=== PATIENT | female | born 1990 | race Hispanic/Latino ===

== ENCOUNTER 2022-11-23 20:49 | Emergency (ER) | payer SELFPAY ==
--- OUTSIDE RECORDS SUMMARY | 2022-11-23 21:26 | XMS REPORT | Continuity of Care Document ---
:1990 Author Organization [facility] t Address [address] [place] [address] Care Team Providers Name Role Phone PORTIA GONZALEZ Primary Care Physician Unavailable PORTIA GONZALEZ Attending Clinician Unavailable ADRIANE JOLLY Attending Clinician Unavailable ISAC BARTON Attending Clinician Unavailable Isac Barton MD Attending Clinician Aby Portia KEANE Attending Clinician Payers Payer Name Policy Type Policy Number Effective Date Expiration Date Jen banks [id number] 2021 00:00:00 MEDICAID [place] PENDING 2022 PENDING 00:00:00 Problems Condition Condition Condition Status Onset Resolution Last Treating Co mments Source Name Details Category Date Date Treatment Clinician Date Other Other Disease Active 2021-03 Univers general general 0-14 [place] of [place] and advice 00 Ma dical for for Branch contracept contracept jose carlos jose carlos management management Over Over Disease Active 2021-03 Univers weight weight 0-14 ity of 00:00: [place] 00 Medical Branch Elevated Elevated Disease Active 2021-03 Unive rs blood blood 0-14 ity of pressure pressure 00:00: [place] reading reading 00 Medical without without Branch diagnosis diagnosis of of hypertensi hypertensi on on Allergies, Adverse Reactions, Alerts Allergy Allergy Status Severity Reaction(s) Onset Inactive Treating Comm ents Source Name Type Date Date Clinician NO KNOWN Drug Active Univers ALLERGIE Class ity of S [facility] Branch Social History Social Habit Start Date Stop Date Quantity Comments Source Exposure to 2022-01-13 2022-01-23 Not sure [facility]-CoV-2 00:00:00 16:08:00 [facility] (event) Branch Alcohol intake 2022-01-23 2022-01-23 Ex-drinker [facility] 00:00:00 00:00:00 (finding) [facility] Tobacco use and 2022-01-03 2022-01-03 Smokeless tobacco Un iversity of exposure 00:00:00 00:00:00 non-user [facility] Sex Assigned At [birth year] Universit y of 00:00:00 00:00:00 [facility] Smoking Status Start Date Stop Date Source Never smoked tobacco [facility] Medications Ordered Filled Start Stop Current Ordering Indication Dosage Frequency Signature Comments Components Source Medication Medication Date Date Medication? Clinician (SIG) Name Name levonorgest 2021-03 Yes [id number] 1{tbl} Take 1 Univers rel-ethinyl 1-03 tablet by ity of estradiol 00:00: mouth [place] (SRONYX) 00 daily. Medical 0.1-20 Branch mg-mcg per tablet levonorgest 2021-03 Yes [id number] 1{tbl} Take 1 Univers rel-ethinyl 1-03 tablet by ity of estradiol 00:00: mouth [place] (SRONYX) 00 daily. Medical 0.1-20 Branch mg-mcg per tablet levonorgest 2021-03 Yes [id number] 1{tbl} Take 1 Univers rel-ethinyl 1-03 tablet by ity of estradiol 00:00: mouth [place] (SRONYX) 00 daily. Medical 0.1-20 Branch mg-mcg per tablet levonorgest 2021-03 Yes [id number] 1{tbl} Take 1 Univers rel-ethinyl 1-03 tablet by ity of estradiol 00:00: mouth [place] (SRONYX) 00 daily. Medical 0.1-20 Branch mg-mcg per tablet levonorgest 2021-03 Yes [id number] 1{tbl} Take 1 Univers rel-ethinyl 1-03 tablet by ity of estradiol 00:00: mouth [place] (SRONYX) 00 daily. Medical 0.1-20 Branch mg-mcg per tablet No known 2021-03 No No known Unive rs medications 0-14 medication it y of 10:18: s [place] [address] Medical Branch No known 2021-03 No No known Unive rs medications 0-14 medication it y of 10:18: s [address] Vital Signs Vital Name Observation Time Observation Value Comments Source Systolic blood 2022-09-06 18:05:00 136 mm[Hg] Univer sity of pressure [facility] Diastolic blood 2022-09-06 18:05:00 83 mm[Hg] Unive rsity of pressure [facility] Heart rate 2022-09-06 18:05:00 99 /min Universi ty of [facility] Body temperature 2022-09-06 18:05:00 37.72 Jolene Univ ersity of [facility] Respiratory rate 2022-09-06 18:05:00 18 /min Univ ersity of [facility] Body weight 2022-09-06 18:05:00 78.926 kg Universi ty of [facility] BMI 2022-09-06 18:05:00 29.87 kg/m2 Universi ty of [facility] Oxygen saturation in 2022-09-06 18:05:00 99 /min [facility] Arterial blood by [facility] Pulse oximetry Branch Systolic blood 2022-01-23 21:09:00 139 mm[Hg] Univer sity of pressure [facility] Diastolic blood 2022-01-23 21:09:00 83 mm[Hg] Unive rsity of pressure [facility] Heart rate 2022-01-23 21:09:00 73 /min Universi ty of [facility] Body temperature 2022-01-23 21:09:00 36.33 Jolene Univ ersity of [facility] Respiratory rate 2022-01-23 21:09:00 18 /min Univ ersity of [facility] Body height 2022-01-23 21:09:00 162.6 cm [facility] Body weight 2022-01-23 21:09:00 78.983 kg [facility] BMI 2022-01-23 21:09:00 29.89 kg/m2 [facility] Systolic blood 2022-01-03 16:01:00 130 mm[Hg] Univer sity of pressure [facility] Branch Diastolic blood 2022-01-03 16:01:00 86 mm[Hg] Unive rsity of pressure [facility] Heart rate 2022-01-03 15:17:00 77 /min [facility] Body temperature 2022-01-03 15:17:00 36.56 Jolene [facility] 2022-01-03 15:17:00 18 /min [facility] Body height 2022-01-03 15:17:00 165 cm [facility] Body weight 2022-01-03 15:17:00 78.109 kg [facility] BMI 2022-01-03 15:17:00 28.69 kg/m2 [facility] Procedures Procedure Date / Time Performed Performing Clinician [facility] e ASSIGNMENT OF BENEFITS 2022-09-06 18:36:59 Doctor Unassigned, No [facility] POCT TEST 2022-01-23 21:27:00 Portia Gonzalez [facility] POCT TEST 2022-01-03 15:20:00 Portia Gonzalez [facility] Encounters Start End Encounter Admission Attending Care Care Encounter Source Date/Time Date/Time Type Type Clinicians Facility Department ID 2022-10-24 2022-10-24 Outpatient R SHANAE [facility] [id number] Univers 09:15:00 09:15:00 ADRIANE freedman [facility] 2022-10-07 2022-10-07 Outpatient R ABY [facility] [id number] Univers 15:00:00 15:00:00 PORTIA freedman o f [facility] 2022-09-06 2022-09-06 Emergency X VASUT, [facility] ERT [id number] Univers 13:06:00 14:20:00 IASC freedman [facility] 2022-09-06 2022-09-06 Emergency Vasut, [facility] [id number] Univers 13:06:00 14:20:00 Isac SCOTT [id number] i ty [facility] [id number] [facility] [id number] [place] [address] Branch 2022-04-24 2022-04-24 [facility] [id number] Univers 16:00:00 16:00:00 PORTIA freedman o f [facility] 2022-03-19 2022-03-19 [facility] [id number] Univers 00:00:00 00:00:00 Portia C TEMPLATE CUTTER [id number] ity of REGIONAL [id number] Hugo as MATERNAL [id number] [facility] & CHILD [address] [place] [address] 2022-02-24 2022-02-24 Refill [facility] [id number] Univers 00:00:00 00:00:00 Portia C TEMPLATE CUTTER [id number] ity of REGIONAL [id number] Hugo as MATERNAL [id number] [address] 2022-01-23 2022-01-23 [facility] [id number] [facility] 16:00:00 16:46:04 PORTIA ocampo [facility] 2022-01-23 2022-01-23 Office [facility] [id number] Univers 16:00:00 16:15:00 Visit Portia C TEMPLATE CUTTER [id number] ity of REGIONAL [id number] Hugo as MATERNAL [id number] [address] 2022-01-03 2022-01-03 Office [facility] [id number] Univers 10:00:00 11:01:13 Visit Portia C TEMPLATE CUTTER [id number] ity of REGIONAL [id number] Hugo as MATERNAL [id number] [address] 2022-01-03 2022-01-03 Outpatient R WINPE, [facility] [id number] Univers 10:00:00 11:01:13 PORTIA ity o [facility] Results Test Description Test Time Test Comments Results Result Comments Source POCT TEST 2022-01-23 21:27:00 Test Item Value Reference Range Interpretation Comme nts POCT PREG (test code = 1605) Negative On board controls acceptable with C Line (test code = 3574) Yes POCT PREG LOT # (test code = 3575) POCT PREG TEST DATE (test code = 3576) [id number] 21:27:00 Test Item Value Reference Range Interpretation Comments POCT PREG (test code = 1605) Negative On board controls acceptable with C Yes Line (test code = 3574) POCT PREG LOT # (test code = 3575) POCT PREG TEST DATE (test code = 3576) [id number] 15:20:00 Test Item Value Reference Range Interpretation Comments POCT PREG (test code = 1605) Negative On board controls acceptable with C Yes Line (test code = 3574) POCT PREG LOT # (test code = 3575) POCT PREG TEST DATE (test code = 3576) [id number] 15:20:00 Test Item Value Reference Range Interpretation Comments POCT PREG (test code = 1605) Negative On board controls acceptable with C Yes Line (test code = 3574) POCT PREG LOT # (test code = 3575) POCT PREG TEST DATE (test code = 3576) [facility]
--- NOTE | 2022-11-24 00:24 | ER ---
Nurse's Notes [facility] Name: Julius Trujillo Age: 32 yrs Sex: Female : 1990 Arrival Date: 11/23/2022 Time: 20:49 Bed External Waiting Private MD: Diagnosis: Presentation: 11/23 22:06 Chief complaint: Spouse and/or significant other states: Last week we were eating tacos vc1 and she thinks she swallowed something. She still has a pain in her throat and feels like there is something there. Coronavirus screen: Client denies travel out of the [place] in the last 14 days. At this time, the client does not indicate any symptoms associated with coronavirus-19. Ebola Screen: Patient negative for fever greater than or equal to 101.5 degrees Fahrenheit, and additional compatible Ebola Virus Disease symptoms Patient denies exposure to infectious person. Patient denies travel to an Ebola-affected area in the 21 days before illness onset. No symptoms or risks identified at this time. Initial Sepsis Screen: Does the patient meet any 2 criteria? No. Patient's initial sepsis screen is negative. Does the patient have a suspected source of infection? No. Patient's initial sepsis screen is negative. Risk Assessment: Do you want to hurt yourself or someone else? Patient reports no desire to harm self or others. Onset of symptoms was November 17, 2022. 22:06 Method Of Arrival: Ambulatory vc1 22:06 Acuity: GINI 4 vc1 22:09 Note Went to and they didn't see anything. vc1 Historical: - Allergies: 22:09 No Known Allergies; vc1 - Home Meds: 22:09 None [Active]; vc1 - PMHx: 22:09 None; vc1 - PSHx: 22:09 None; vc1 - Social history:: Smoking status: Patient/guardian denies using tobacco, the patient reports quitting approximately 1 years ago. Vital Signs: 22:06 BP 131 / 89; Pulse 90; Resp 18; Temp 98.8; Pulse Ox 100% ; Weight 81.65 kg; Height 5 vc1 ft. 4 in. ; Pain 5/10; 22:06 Body Mass Index 30.90 (81.65 kg, 162.56 cm) vc1 22:06 Pain Scale: Adult vc1 ED Course: 20:52 Patient arrived in ED. mr 22:09 Triage completed. vc1 22:09 Arm band placed on right wrist. vc1 22:27 Solitario Mcclure MD is Attending Physician. jaya Administered Medications: No medications were administered Outcome: 11/24 00:14 Patient left the ED. vc1 00:14 Eloped from waiting room, before seeing physician Time discovered patient gone: vc1 November 24, 2022 at 00:14 Signatures: Solitario Mcclure MD MD cha Rivera, Mary mr Calcote, Vanessa, RN RN vc1 Corrections: (The following items were deleted from the chart) 00:24 00:24 Patient left the ED. vc1 vc1
[2022-11-24 01:11] VITALS: BP 131/89; TEMP 98.8; O2SAT 100
== END 2022-11-24 00:24 | disposition left against medical advice (07) ==
LOC: ER 20:49
DX: Z53.21 Procedure and treatment not carried out due to patient leaving prior to being seen by health care provider (principal)
CPT/HCPCS: 99281